=== PATIENT | male | born 1995 | race Caucasian/White ===

== ENCOUNTER 2019-06-23 09:14 | Emergency (ER) | payer BC ==
[2019-06-23 09:31] VITALS: BP 122/78
--- NOTE | 2019-06-23 09:40 | UC ---
Lower Extremity/Ankle HPI - HPI Summary HPI Summary: 23 year old male with no PMH, no prior injuries presents with injury to right knee last night while playing basketball. Patient states another player hit him into his right knee, on outside of knee, causing knee to buckle in. + swelling, tenderness at outside of right knee. + limping, pain with ambulation. Able to move knee well. no ankle pain, no hip pain - History of Current Complaint Chief Complaint: UCLowerExtremity Stated Complaint: KNEE INJURY Time Seen by Provider: 06/23/19 09:39 Hx Obtained From: Patient Onset/Duration: Sudden Onset, Lasting Days - last evening. Severity Initially: Moderate Severity Currently: Moderate Pain Intensity: 5 Pain Scale Used: 0-10 Numeric Aggravating Factor(s): Standing, Ambulation Alleviating Factor(s): Rest, OTC Meds Able to Bear Weight: Yes - Allergies/Home Medications Allergies/Adverse Reactions: Allergies Allergy/AdvReac Type Severity Reaction Status Date / Time No Known Allergies Allergy Verified 06/23/19 09:31 Home Medications: Home Medications NK [No Home Medications Reported] 06/23/19 [History Confirmed 06/23/19] PMH/Surg Hx/FS Hx/Imm Hx Previously Healthy: Yes Other History Of: Negative For: Anticoagulant Therapy - Surgical History Surgical History: Yes Surgery Procedure, Year, and Place: wrist surgery 2007 - Family History Known Family History: Positive: Non-Contributory - Social History Occupation: Employed Full-time Alcohol Use: Occasionally Substance Use Type: None Smoking Status (MU): Never Smoked Tobacco Review of Systems All Other Systems Reviewed And Are Negative: Yes Constitutional: Positive: Negative Neurovascular: Positive: Negative Musculoskeletal: Positive: Arthralgia, Decreased ROM, Edema, Myalgia Is Patient Immunocompromised?: No Physical Exam Triage Information Reviewed: Yes Appearance: Well-Appearing, Well-Nourished, Pain Distress - minimal at rest, moderate during exam Vital Signs: Initial Vital Signs Temp 97.2 F 06/23/19 09:28 Pulse 63 06/23/19 09:28 Resp 16 06/23/19 09:28 BP 122/78 06/23/19 09:28 Pulse Ox 100 06/23/19 09:28 Vital Signs Reviewed: Yes Eyes: Positive: Conjunctiva Clear ENT: Positive: Hearing grossly normal Musculoskeletal: Positive: Strength Intact - + full strength of R knee with FF, extension., ROM Intact - Right knee with full ROM 0-120 degrees, neg ACL/ PCL testing, no pain over med/ lat meniscus. neg homans, full ROM, strength of ankle, neg squeeze testing., Edema @ - lateral knee, proximal fibula, Other: - + DF/PF. Neurological: Positive: Alert, Other: Psychological Exam: Normal Psychological: Positive: Normal Response To Family Skin Exam: Normal - no open wounds or sores Lower Extremity Course/Dx - Course Course Of Treatment: Minimally displaced fracture of proximal Fibula - Knee immobilizer at all times, may remove for getting dressed, showering without standing - Weight bearing at tolerated. - Follow up with Dr Rey tomorrow for further evaluation - Motrin as needed for pain - REst, ice, elevation as much as possible - Work note given - Differential Dx/Diagnosis Differential Diagnosis/HQI/PQRI: Fracture (Closed), Fracture (Open), Phlebitis, Sprain, Strain Provider Diagnosis: Fibular upper end fracture Discharge ED - Sign-Out/Discharge Documenting (check all that apply): Patient Departure All imaging exams completed and their final reports reviewed: No Studies - Discharge Plan Condition: Good Disposition: HOME Patient Education Materials: Leg Fracture (ED) Forms: *Work Release Referrals: [facility] [Outside] Spencer Rey MD [Medical Doctor] - No Primary Care Phys,NOPCP [Primary Care Provider] - Additional Instructions: Minimally displaced fracture of proximal Fibula - Knee immobilizer at all times, may remove for getting dressed, showering without standing - Weight bearing at tolerated. - Follow up with Dr Rey tomorrow for further evaluation - Motrin as needed for pain - REst, ice, elevation as much as possible - Work note given Boiler Shop Mechanic: Amandeep Avitia C, ([id number]) Clinical Operations Consultant: JOSE ( JOSE) Report Date: 06/23/2019 10:30:00 Report Status: Final ====== Start of Report Content Patient Name: KLEBER PADILLA Medical Record#: [id number] Ordering Physician: Adela DAVIS Acct.#: [id number] : 1995 Age: 23 Sex: M Location: [facility] Exam Date: 0954 ADM Status: REG ER Order Information: KNEE RIGHT 1-2 VWS Accession Number: [id number] CPT: 39801 Indication: Lateral RIGHT knee pain post fall. COMPARISON: No relevant prior exams available on the [facility] PACS for comparison. Technique: RIGHT knee: AP and lateral views obtained. AP and lateral views RIGHT lower leg. REPORT AND IMPRESSION: #. Normal articular alignment. #. Fracture at the proximal metaphysis of the fibula with 2 cortex widths posterior displacement. No definitive extension to the proximal tibiofibular articulation. Negative for additional fracture at the knee or lower leg. #. Negative for joint effusion. #. Preserved joint spaces without appreciable arthropathic change. #. Soft tissue swelling most prominent peripheral to the proximal fibula. < Electronically signed by Amandeep Avitia MD in [place]> 06/23/19 1026 Dictated By: Amandeep Avitia MD Dictated Date/Time: 06/23/19 1022 Transcribed Date/Time: 01/03 1022 Copy to: CC:Chano Petit MD; Adela DAVIS; No Primary Care Phys, NOPCP Imaging - [facility] Imaging - [facility] Imaging - [facility] [address] [place] [address] ph ([phone]) ph ([phone]) ph ([phone]) End of Report Content - Billing Disposition and Condition Condition: GOOD Disposition: Home
== END 2019-06-23 10:45 | disposition home or self-care (01) ==
LOC: UCEAST 09:14
DX: S82.831A Other fracture of upper and lower end of right fibula, initial encounter for closed fracture (principal); W51.XXXA Accidental striking against or bumped into by another person, initial encounter; Y93.67 Activity, basketball; Y92.9 Unspecified place or not applicable
CPT/HCPCS: 99212; G0463